=== PATIENT | male | born 1985 | race Caucasian/White ===

== ENCOUNTER 2021-11-25 20:26 | Emergency (ER) | payer SELFPAY ==
[~2021-11-25] VITALS: Ht 182.9 cm; Wt 77.2 kg
[2021-11-25 21:11] VITALS: BP 113/65
== END 2021-11-25 23:46 | disposition home or self-care (01) ==
LOC: ER 20:27
DX: F32.9 Major depressive disorder, single episode, unspecified (principal); F10.20 Alcohol dependence, uncomplicated; Z59.00 Homelessness unspecified; F17.210 Nicotine dependence, cigarettes, uncomplicated; I10 Essential (primary) hypertension
CPT/HCPCS: 99285